=== PATIENT | male | born 1980 | race African-American/Black ===

== ENCOUNTER 2018-08-07 08:55 | Emergency (ER) | payer MEDICAID ==
[~2018-08-07] VITALS: Ht 188 cm; Wt 120.0 kg
[2018-08-07 09:07] VITALS: BP 144/85
[2018-08-07] MEDS ORDERED: ARIP5TAB4 PO (09:10)
== END 2018-08-07 09:19 | disposition home or self-care (01) ==
LOC: ER 08:55
DX: F29 Unspecified psychosis not due to a substance or known physiological condition (principal); Z76.0 Encounter for issue of repeat prescription; Z88.8 Allergy status to other drugs, medicaments and biological substances
CPT/HCPCS: 99283

== ENCOUNTER 2020-02-16 12:41 | Emergency (ER) | payer MEDICAID ==
[~2020-02-16] VITALS: Ht 188 cm; Wt 123.6 kg
[~2020-02-16 12:41] MED LIST: ARIP5TAB14 PO
[2020-02-16 13:04] VITALS: BP 149/82
== END 2020-02-16 13:26 | disposition home or self-care (01) ==
LOC: ER 12:42
DX: R61 Generalized hyperhidrosis (principal); R68.83 Chills (without fever); Z88.8 Allergy status to other drugs, medicaments and biological substances; Z79.899 Other long term (current) drug therapy
CPT/HCPCS: 99281

== ENCOUNTER 2020-08-28 13:52 | Emergency (ER) | payer MEDICAID ==
[~2020-08-28] VITALS: Ht 188 cm; Wt 109.1 kg
[2020-08-28 13:55] VITALS: BP 144/82
--- NOTE | 2020-08-28 14:20 | NUR ---
PT SPEAKING WITH PROVIDER
[2020-08-28] MEDS ORDERED: SERT50TA PO (14:22)
[2020-08-28] MEDS ORDERED: QUET-1 PO (14:22)
== END 2020-08-28 14:37 | disposition home or self-care (01) ==
LOC: ER 13:53
DX: Z02.89 Encounter for other administrative examinations (principal); F15.90 Other stimulant use, unspecified, uncomplicated; F99 Mental disorder, not otherwise specified; Z88.8 Allergy status to other drugs, medicaments and biological substances; Z79.899 Other long term (current) drug therapy
CPT/HCPCS: 99283

== ENCOUNTER 2020-09-12 12:29 | Emergency (ER) | payer MEDICAID, BC ==
[~2020-09-12] VITALS: Ht 188 cm; Wt 109.1 kg
[~2020-09-12 12:29] MED LIST changes: +QUET-1 PO; +SERT50TA PO
[2020-09-12] MEDS ORDERED: OLANZapine 5mg rapidly disint. tablet PO ONE (12:40)
[2020-09-12] MEDS ORDERED: diphenhydrAMINE 50 mg/ml inj IM ONE (12:50)
[2020-09-12] MEDS ORDERED: LORazepam 2 mg/ml vial IM ONE (12:50)
[2020-09-12] MEDS ORDERED: haloperidol lactate 5mg/ml inj IM ONE (12:50)
[2020-09-12 13:40] LABS: BASOPHILS # (AUTO) 0.1 X10'3 (0-0.2); BASOPHILS % (AUTO) 0.6 % (0-1); EOSINOPHILS # (AUTO) 0.1 X10'3 (0-0.9); HEMATOCRIT 43.4 % (42.0-52.0); HEMOGLOBIN 14.2 g/dl (14.0-17.9); LYMPHOCYTES # (AUTO) 2.2 X10'3 (1.1-4.8); LYMPHOCYTES % (AUTO) 19.2 % (21-51); MEAN CORPUSCULAR HEMOGLOBIN 27.7 PG (27.0-31.0); MEAN CORPUSCULAR HGB CONC 32.7 g/dL (33.0-36.5); MEAN CORPUSCULAR VOLUME 84.8 FL (78-98); MEAN PLATELET VOLUME 8.7 FL (7.4-10.4); MONOCYTES # (AUTO) 1.2 X10'3 (0-0.9); MONOCYTES % (AUTO) 10.7 % (2-12); NEUTROPHILS # (AUTO) 7.9 X10'3 (1.8-7.7); NEUTROPHILS % (AUTO) 68.5 % (42-75); PLATELET COUNT 245 X10'3 (140-440); RED BLOOD COUNT 5.12 X10'6 (4.70-6.10); RED CELL DISTRIBUTION WIDTH 13.7 % (11.5-14.5); WHITE BLOOD COUNT 11.5 X10'3 (4.5-11.0)
[2020-09-12 13:54] LABS: ALANINE AMINOTRANSFERASE 72 U/L (12-78); ALBUMIN 4.7 G/DL (3.4-5.0); ALBUMIN/GLOBULIN RATIO 1.5 (1.1-1.5); ALKALINE PHOSPHATASE 67 IU/L (46-116); ANION GAP 17 (8-16); ASPARTATE AMINO TRANSFERASE 77 U/L (10-37); BILIRUBIN,TOTAL 1.3 MG/DL (0.1-1.0); BLOOD UREA NITROGEN 9 MG/DL (7-18); BUN/CREATININE RATIO 5.1 (5.4-32.0); CALCIUM 9.7 MG/DL (8.5-10.1); CHLORIDE 101 MMOL/L (99-107); CREATININE 1.78 MG/DL (0.60-1.10); ETHANOL < 0.010 GM/DL (0.0-0.010); GLUCOSE 110 MG/DL (70-104); SODIUM 142 MMOL/L (135-145); TOTAL CARBON DIOXIDE 23.7 MMOL/L (24-32); TOTAL PROTEIN 7.8 G/DL (6.4-8.2); eGFR 51 ML/MIN
[2020-09-12 13:55] LABS: POTASSIUM 2.7 MMOL/L (3.5-5.1)
--- NOTE | 2020-09-12 13:57 | NUR ---
Patient extremely anxious and persistently trying to leave the ED. Paul bradford called and patient returned safely to room. Agitated and restless, non violent. Able to give him B52 with his consent. Patient with sitter for safety as well.
[2020-09-12 13:58] LABS: URINE AMPHETAMINE SCREEN POSITIVE (Neg); URINE BARBITUATE SCREEN NEGATIVE (Neg); URINE BENZODIAZEPINES SCREEN NEGATIVE (Neg); URINE CANNABINOID SCREEN NEGATIVE (Neg); URINE COCAINE SCREEN NEGATIVE (Neg); URINE METHADONE SCREEN NEGATIVE (Neg); URINE OPIATE SCREEN NEGATIVE (Neg); URINE PHENCYCLIDINE SCREEN NEGATIVE (Neg)
[2020-09-12] MEDS ORDERED: potassium Cl 20 mEq SR tablet PO STA (14:27)
[2020-09-12] MEDS ORDERED: ondansetron 4mg rapidly disintigrating tab PO ONE (14:30)
--- NOTE | 2020-09-12 14:51 | NUR ---
FAXED PACKET TO [facility]
[2020-09-12] MEDS ORDERED: normal saline 1000ML IV soln IVB ONE (15:10)
[2020-09-12] MEDS ORDERED: potassium Cl 10 mEq/100mL bag IV ONE (15:10)
--- NOTE | 2020-09-12 15:30 | NUR ---
Attempted to give patient potassium replacement but he is very sedated and cant wake up or focus long enough to take pills. At the same time too restless to safely attempt iv. operations superintendent and md aware and he'll be kept here for obs until low K+ is treated.
--- NOTE | 2020-09-12 18:50 | NUR ---
PT BROUGHT TO ER OVERFLOW ACCOMPANIED BY STAFF. PT HAS IV RUNNING OF NSS AND POTASSIUM. PT GIVEN DINNER TRAY.
--- NOTE | 2020-09-12 19:36 | NUR ---
POTASSIUM IV COMPLETED AND DC'D. PT DID NOT EAT DINNER TRAY. HE ISSTILL SLIGHTLY SEDATED AND LAYS DOWN AND GOES RIGHT TO SLEEP. GIVEN WATER AND WARM BLANKETS.
--- NOTE | 2020-09-12 21:51 | NUR ---
PT RESTING ON R SIDE RR 16, EVEN AND UNLABORED
--- NOTE | 2020-09-13 00:01 | NUR ---
PT SLEEPING ON BACK, RR 16 EVEN AND UNLABORED
--- NOTE | 2020-09-13 02:25 | NUR ---
PT SLEEPING ON R SIDE, RR 14
--- NOTE | 2020-09-13 04:51 | NUR ---
PT SLEEPING ON BACK, NO DISTRESS NOTED
--- NOTE | 2020-09-13 06:41 | NUR ---
Patient is sleeping supine in bed. Respirations are even and unlabored.
--- NOTE | 2020-09-13 09:57 | NUR ---
Patient is laying supine in bed. Respirations are even and unlabored. Pt. ate 100% of his breakfast and will be discharging per [facility].
--- NOTE | 2020-09-13 10:37 | NUR ---
Elizabeth called for patient. Patient will be going to his home in [place]. Patient denies SI. Patient is discharged in stable condition.
[2020-09-13 11:05] VITALS: BP 135/78
== END 2020-09-13 11:09 ==
LOC: ER 12:29
DX: F28 Other psychotic disorder not due to a substance or known physiological condition (principal); E87.6 Hypokalemia; Z60.2 Problems related to living alone; Z88.8 Allergy status to other drugs, medicaments and biological substances; Z79.899 Other long term (current) drug therapy
CPT/HCPCS: 36415; 80053; 80305; 80320; 85025; 96365; 96366; 96372; 99285; J1200; J1630; J2060; J3480; J7030

== ENCOUNTER 2020-12-23 20:42 | Emergency (ER) | payer BC, MEDICAID ==
[~2020-12-23] VITALS: Ht 188 cm; Wt 121.3 kg
[~2020-12-23 20:42] MED LIST changes: -SERT50TA PO
[2020-12-23 20:45] VITALS: BP 131/86
[2020-12-23] MEDS ORDERED: METH4TAB81 PO (22:03)
[2020-12-23] MEDS ORDERED: ketorolac trometh. 30mg/ml inj. IM ONE (22:05)
[2020-12-23] MEDS ORDERED: orphenadrine citrate 60mg/2ml inj. IM ONE (22:10)
== END 2020-12-23 22:22 | disposition home or self-care (01) ==
LOC: ER 20:43
DX: M54.5 Low back pain (principal); G89.29 Other chronic pain; Z88.8 Allergy status to other drugs, medicaments and biological substances; Z79.899 Other long term (current) drug therapy
CPT/HCPCS: 72100; 96372; 99284; J1885; J2360

== ENCOUNTER 2021-01-10 08:24 | Emergency (ER) | payer MEDICAID ==
[~2021-01-10] VITALS: Ht 188 cm; Wt 125.0 kg
[~2021-01-10 08:24] MED LIST changes: +METH4TAB81 PO
[2021-01-10 09:27] VITALS: BP 146/91
== END 2021-01-10 08:50 | disposition home or self-care (01) ==
LOC: ER 08:25
DX: J02.9 Acute pharyngitis, unspecified (principal); Z20.822 Contact with and (suspected) exposure to COVID-19; B34.9 Viral infection, unspecified; R43.8 Other disturbances of smell and taste; R05 Cough; F17.200 Nicotine dependence, unspecified, uncomplicated; Z60.2 Problems related to living alone; Z88.8 Allergy status to other drugs, medicaments and biological substances; Z79.899 Other long term (current) drug therapy
CPT/HCPCS: 87635; 99283; C9803

== ENCOUNTER → 2021-04-04 | Outpatient (CLI) | payer BC, MEDICAID | END | disposition home or self-care (01) | LOC: RAD 10:37 | DX: K21.9 Gastro-esophageal reflux disease without esophagitis (principal); R14.0 Abdominal distension (gaseous); R00.9 Unspecified abnormalities of heart beat | CPT/HCPCS: 71046; 76700 ==

== ENCOUNTER 2021-10-09 12:27 | Outpatient (CLI) | payer BC, MEDICAID | END 2021-10-09 23:59 | disposition home or self-care (01) | LOC: RAD 12:27 | PROVIDERS: ATTEND Nurse Practitioner Family | DX: M48.061 Spinal stenosis, lumbar region without neurogenic claudication (principal); M51.26 Other intervertebral disc displacement, lumbar region; M12.88 Other specific arthropathies, not elsewhere classified, other specified site | CPT/HCPCS: 72148 ==

== ENCOUNTER 2022-03-06 08:47 | Outpatient (CLI) | payer BC, MEDICAID ==
[2022-03-06 09:23] LABS: BASOPHILS % (AUTO) 0.7 % (0-1); EOSINOPHILS # (AUTO) 0.2 X10'3 (0-0.9); EOSINOPHILS % (AUTO) 3.3 % (0-6); HEMATOCRIT 46.1 % (42.0-52.0); HEMOGLOBIN 15.3 g/dl (14.0-17.9); LYMPHOCYTES # (AUTO) 1.7 X10'3 (1.1-4.8); LYMPHOCYTES % (AUTO) 31.8 % (21-51); MEAN CORPUSCULAR HEMOGLOBIN 27.6 PG (27.0-31.0); MEAN CORPUSCULAR HGB CONC 33.1 g/dL (33.0-36.5); MEAN CORPUSCULAR VOLUME 83.3 FL (78-98); MEAN PLATELET VOLUME 8.8 FL (7.4-10.4); MONOCYTES # (AUTO) 0.4 X10'3 (0-0.9); NEUTROPHILS % (AUTO) 57.2 % (42-75); PLATELET COUNT 181 X10'3 (140-440); RED BLOOD COUNT 5.53 X10'6 (4.70-6.10); RED CELL DISTRIBUTION WIDTH 13.8 % (11.5-14.5); WHITE BLOOD COUNT 5.3 X10'3 (4.5-11.0)
[2022-03-06 09:31] LABS: CLARITY,URINE CLEAR (Clear); COLOR,URINE YELLOW (Yellow); GLUCOSE, URINE NEGATIVE (Neg); KETONES,URINE NEGATIVE (Neg); LEUKOCYTE ESTERASE ,URINE NEGATIVE (Neg); NITRITES, URINE NEGATIVE (Neg); OCCULT BLOOD,URINE NEGATIVE (Neg); PH,URINE 5.5 (4.8-8.0); PROTEIN,URINE NEGATIVE (Neg); UROBILINOGEN,URINE 0.2 E.U/dL (0.2-1.0)
[2022-03-06 09:32] LABS: UA COLLECTION TYPE VOIDED
[2022-03-06 09:43] LABS: ALANINE AMINOTRANSFERASE 55 U/L (12-78); ALBUMIN 4.3 G/DL (3.4-5.0); ALBUMIN/GLOBULIN RATIO 1.3 (1.1-1.5); ALKALINE PHOSPHATASE 52 IU/L (46-116); ANION GAP 8 (8-16); ASPARTATE AMINO TRANSFERASE 25 U/L (10-37); BILIRUBIN,TOTAL 0.6 MG/DL (0.1-1.0); BLOOD UREA NITROGEN 9 MG/DL (7-18); BUN/CREATININE RATIO 7.3 (5.4-32.0); CALCIUM 9.4 MG/DL (8.5-10.1); CHLORIDE 105 MMOL/L (99-107); CHOL/HDL RATIO 3.9 (0.00-4.99); CHOLESTEROL 186 MG/DL (0-200); CREATININE 1.24 MG/DL (0.60-1.10); GLUCOSE 107 MG/DL (70-104); HDL CHOLESTEROL 48 MG/DL (35-60); LDL CHOLESTEROL 115 MG/DL (50-100); SODIUM 140 MMOL/L (135-145); TOTAL CARBON DIOXIDE 27.2 MMOL/L (24-32); TOTAL PROTEIN 7.5 G/DL (6.4-8.2); TRIGLYCERIDES 111 MG/DL (20-135); eGFR 77 ML/MIN
[2022-03-06 09:45] LABS: HEMOGLOBIN A1C 5.8 % (4.5-6.2)
[2022-03-07 09:00] LABS: PSA, ULTRASENSITIVE W/O SERIAL 0.894 ng/mL (0.000-4.000)
[2022-03-07 15:36] LABS: ANTINUCLEAR ANTIBODIES Negative (Negative)
== END 2022-03-06 23:59 | disposition home or self-care (01) ==
LOC: RAD 08:47
PROVIDERS: ATTEND Nurse Practitioner Family
DX: R79.89 Other specified abnormal findings of blood chemistry (principal); R68.89 Other general symptoms and signs; E11.9 Type 2 diabetes mellitus without complications; R94.6 Abnormal results of thyroid function studies; R82.90 Unspecified abnormal findings in urine; R97.20 Elevated prostate specific antigen [PSA]; E29.1 Testicular hypofunction; R06.02 Shortness of breath; F17.210 Nicotine dependence, cigarettes, uncomplicated
CPT/HCPCS: 36415; 71046; 80053; 80061; 81003; 83036; 84153; 84402; 84403; 84439; 84443; 85025; 86038

== ENCOUNTER 2022-07-14 10:58 | Emergency (ER) | payer OTHER, BC, MEDICAID ==
[~2022-07-14] VITALS: Ht 188 cm; Wt 113.6 kg
[2022-07-14 11:14] VITALS: BP 142/96
[2022-07-14] MEDS ORDERED: acetaminophen 325mg tablet PO ONE (13:45)
[2022-07-14] MEDS ORDERED: ketorolac trometh. 30mg/ml inj. IM ONE (14:20)
== END 2022-07-14 15:48 | disposition home or self-care (01) ==
LOC: ER 10:58
DX: S80.01XA Contusion of right knee, initial encounter (principal); M54.2 Cervicalgia; M54.14 Radiculopathy, thoracic region; F17.200 Nicotine dependence, unspecified, uncomplicated; Z88.5 Allergy status to narcotic agent; Z79.899 Other long term (current) drug therapy; V49.9XXA Car occupant (driver) (passenger) injured in unspecified traffic accident, initial encounter; Y93.89 Activity, other specified; Y99.8 Other external cause status; Y92.89 Other specified places as the place of occurrence of the external cause
CPT/HCPCS: 72125; 96372; 99285; J1885

== ENCOUNTER 2024-07-07 10:28 | Emergency (ER) | payer BC, MEDICAID, SELFPAY ==
[~2024-07-07] VITALS: Ht 188 cm; Wt 114.1 kg
[~2024-07-07 10:28] MED LIST changes: +ARIP5TAB12 PO; -ARIP5TAB14 PO
[2024-07-07 10:49] VITALS: BP 154/84; PULSE 83; TEMP 97.8; O2SAT 98
[2024-07-07 11:36] VITALS: RESP 15
== END 2024-07-07 13:02 | disposition home or self-care (01) ==
LOC: ER 10:28
DX: J22 Unspecified acute lower respiratory infection (principal); Z88.8 Allergy status to other drugs, medicaments and biological substances
CPT/HCPCS: 99281